=== PATIENT | male | born 1990 | race Caucasian/White ===

== ENCOUNTER 2017-06-10 13:18 | Emergency (ER) | payer OTHER, BC ==
[~2017-06-10] VITALS: Ht 162.6 cm; Wt 68.2 kg
[2017-06-10 13:32] VITALS: TEMP 98
[2017-06-10 14:14] LABS: BASO # 0.1 (0.0-0.2); BASO % 0.3 % (0.0-2.0); EOS # 0.1 (0.0-0.7); EOS % 0.6 % (0-4.0); GRAN # 16.2 (1.4-6.5); GRAN % 84.3 % (42.2-75.2); HEMOGLOBIN 13.5 g/dl (13.5-18.0); LYMPH # 1.6 (1.2-3.4); LYMPH % 8.4 % (20.0-51.0); MEAN CELL VOLUME 84 fl (80.0-100.0); MEAN CORPUSCULAR HEMOGLOBIN 30 pg (27.0-31.0); MEAN CORPUSCULAR HGB CONC 36 g/dl (33.0-37.0); MONO # 1.1 (0.1-0.6); MONO % 5.8 % (1.7-9.3); PLATELET COUNT 201 K/mm3 (130-400); RED BLOOD COUNT 4.54 M/mm3 (4.20-5.60); REDCELL DISTRIBUTION WIDTH-CV 11.8 % (11.5-14.5)
[2017-06-10 14:16] LABS: INR 1.1 (0.8-3.0); PROTHROMBIN TIME 13.1 SECONDS (9.7-12.8)
[2017-06-10 14:26] LABS: ALBUMIN 3.8 gm/dL (3.5-5.0); BILIRUBIN,TOTAL 0.5 mg/dL (0.0-1.0); CALCIUM 8.3 mg/dL (8.4-10.2); POTASSIUM 3.6 mmol/L (3.4-5.0); TOTAL PROTEIN 6.4 gm/dL (6.4-8.2)
[2017-06-10 16:11] VITALS: BP 141/91
[2017-06-10 16:56] VITALS: PULSE 94
== END 2017-06-10 16:58 | disposition short-term general hospital (02) ==
LOC: COL.ER 13:18
PROVIDERS: Emergency Medicine
DX: S06.0X9A Concussion with loss of consciousness of unspecified duration, initial encounter (principal); S42.291A Other displaced fracture of upper end of right humerus, initial encounter for closed fracture; S01.81XA Laceration without foreign body of other part of head, initial encounter; R40.2412 Glasgow coma scale score 13-15, at arrival to emergency department; Z23 Encounter for immunization; V43.52XA Car driver injured in collision with other type car in traffic accident, initial encounter; Y93.I9 Activity, other involving external motion
CPT/HCPCS: J3010; J7030; Q9967